=== PATIENT | male | born 1955 | race Caucasian/White ===

== ENCOUNTER 2023-07-21 10:48 | Day surgery (SDC) | payer OTHER ==
--- NOTE | 2023-07-21 07:51 | HP ---
DATE OF SURGERY: 07/21/2023 HISTORY OF PRESENT ILLNESS: The patient is a 67-year-old had some dysphagia upper esophagus, seems everything is stuck. He had a steroid injection and was going a little better. No prior upper endoscopy. Family history negative for colon cancer. PAST MEDICAL HISTORY: Reflux, diabetes. PAST SURGICAL HISTORY: T&A. MEDICATIONS: Omeprazole, metformin. ALLERGIES: NKDA. FAMILY HISTORY: Heart disease, chronic obstructive pulmonary disease. SOCIAL HISTORY: No smoking or alcohol abuse. REVIEW OF SYSTEMS: Twelve systems reviewed. No chest pain or palpitations. Other systems negative or noncontributory as above and per preadmission questionnaire. PHYSICAL EXAMINATION: Height 6 foot. BMI 25.77. GENERAL: No acute distress. HEENT: Sclerae nonicteric. EOMI. Oral mucous membranes moist. NECK: No JVD. CHEST: Equal excursion, nonlabored breathing. CVS: Regular rate and rhythm. ABDOMEN: Soft. EXTREMITIES: No significant edema. NEURO: Alert, oriented, moving extremities symmetrically. PSYCH: Appropriate mood and affect. SKIN: Dry. IMPRESSION: Dysphagia upper esophagus, needs EGD possible biopsy possible dilatation. I feel he is a candidate. Risks explained in detail including bleeding or infection, risk of bowel injury or perforation possibly requiring further procedure, risk of missed or nondiagnosis or incomplete exam, possibly requiring barium swallow, other studies or procedures. Possible no improvement in swallowing even if dilatation is performed or possibility this could be more of a functional or neurologic issue more than narrowing that dilatation may not benefit. He understands risk of perforation possibly requiring transfer for stent placement or open procedure. Risk of ongoing morbidity or mortality, risk of sedation but not limited to. Consent was obtained. will proceed with outpatient EGD possible biopsy possible dilatation as an outpatient under MAC anesthesia.
[2023-07-21 11:28] VITALS: RESP 16
[2023-07-21] MEDS: Lactated Ringers 1,000 ML IV SCH (11:40)
[2023-07-21 11:50] LABS: Calcium 9.4 mg/dL (8.4-10.2); Creatinine 1 0.76 mg/dL (0.66-1.25); EST GLOMERULAR FILTRATION RATE 98.5 ML/MIN; Potassium 4.4 mmol/L (3.5-5.1)
[2023-07-21] MEDS ORDERED: DIPRIVAN 200 MG/20 ML IV ONE ×2 (14:11→14:24)
[2023-07-21 15:19] VITALS: BP 139/85; PULSE 69; TEMP 97.1; O2SAT 98
--- NOTE | 2023-07-21 15:24 | OP ---
SURGERY DATE/TIME: 07/21/2023 1413 PREOPERATIVE DIAGNOSIS: Dysphagia. POSTOPERATIVE DIAGNOSES: 1) Mild gastric erythema versus early gastritis, path pending. 2) Small benign appearing gastric polyp. 3) Very short segment of some salmon-pink mucosa extending up distal esophagus. 4) Proximal esophageal narrowing and spasm without pradeep mass. PROCEDURES: 1) EGD with cold biopsy to antrum to evaluate for Helicobacter pylori. 2) Cold biopsy gastric polyp. 3) Cold biopsy esophagus salmon-pink mucosa short segment to evaluate for esophagitis versus Jacinto's versus normal variation gastroesophageal junction. 4) Proximal esophageal balloon dilatation. SURGEON: Dr. Fredy Lewis. ANESTHESIA: MAC. QUANTITATIVE BLOOD LOSS: Minimal. INDICATIONS: As noted above. Risks and benefits explained in detail and not limited to and consent was obtained. DESCRIPTION OF PROCEDURE AND FINDINGS: The patient is taken to the endoscopy room. MAC anesthesia introduced. After official time out and no disagreement with planned procedure, bite block positioned. Video gastroscope passed down the oropharynx. He did have some proximal esophageal narrowing and spasm. There was no pradeep mass to biopsy or any lesion to biopsy. The scope was able to be passed through here. As he is having symptoms, it was felt this warranted dilatation. Scope passed through the patent pylorus to the junction of the third and fourth portion of duodenum. Duodenum grossly unremarkable. Back in the stomach had some gastric erythema and possibly some minimal to mild early gastritis. Cold biopsy taken for Helicobacter pylori. In the gastric body, small benign appearing polyp cold biopsy polypectomy accomplished. On retroflex, the gastroesophageal junction snug against the scope. The scope is straightened. Gastroesophageal junction was about 40 cm and had a little bit of salmon-pink mucosa extending up about 2 to 3 mm. Cold biopsy taken. Good hemostasis noted. Remainder of the esophagus, no signs of any masses. He did have proximal esophageal narrowing and spasm. It was felt this warranted dilatation given his symptom complaints. Scope passed back down the stomach. The 20 balloon catheter was carefully inserted in the stomach and pulled back up to the proximal narrowed area and spasm area. It was then carefully inflated first stage size 18. Unfortunately the patient began swallowing at this time required deflating the balloon and decompressing it pulling it back up to correctly positioning and re-inflating to size 18 for 15 to 20 seconds, and then to size 19 balloon for about 30 seconds, finally to size 20 balloon dilator for approximately 2 minutes and then decompressed and removed. The scope more easily passed through here, down in the stomach and carefully withdrawn. The biopsy site distal esophagus appeared to have adequate hemostasis. The scope is pulled back. There was a little bit of mucosal abrasion where the proximal esophageal narrowed area had been dilated but there was no gross evidence of any full thickness issues secondary to dilatation. The scope is withdrawn. The patient tolerated the procedure well. There was no family here to discuss the findings with.
== END 2023-07-21 15:20 | disposition home or self-care (01) ==
LOC: SDC 10:48
PROVIDERS: ATTEND Surgery
DX: K31.7 Polyp of stomach and duodenum (principal); R13.10 Dysphagia, unspecified; E11.9 Type 2 diabetes mellitus without complications; K31.89 Other diseases of stomach and duodenum; K22.2 Esophageal obstruction
CPT/HCPCS: 36415; 80048; 82947; 83036; 93005; C1726; J1642; J2704